=== PATIENT | female | born 1945 | race Caucasian/White ===

== ENCOUNTER → 2017-02-10 | Outpatient (CLI) | payer MEDICARE, OTHER ==
[~2017-02-10] MED LIST: ANTIVERT 25MG25 MG PO; ATIVAN1 MG PO; CALTRATE 600 +1 TAB PO; DOXYCYCLINE MO100 MG PO; ESTROGEN; PERCOCET 325 MG1 TA2 PO; PHENERGAN 25 TA25 MG PO; PHENERGAN25 MG/SUPP RC; PLAVIX 75MG TAB75 MG PO; PREMARIN 0.60.625 M1; PROAIR HFA0.09 MG/AC IH; VITAMIN B121000 MC2 PO
== END ==
LOC: COL.RAD 10:10
DX: R19.09 Other intra-abdominal and pelvic swelling, mass and lump (principal)

== ENCOUNTER → 2017-03-21 | Outpatient (CLI) | payer MEDICARE, OTHER | LOC: COL.RAD 03-14 08:30 | DX: M25.551 Pain in right hip (principal) | CPT/HCPCS: J3301; Q9967 ==

== ENCOUNTER 2018-02-23 19:24 | Emergency (ER) | payer MEDICARE, OTHER ==
[~2018-02-23] VITALS: Ht 157.5 cm; Wt 51.4 kg
[2018-02-23 19:34] VITALS: BP 168/74; TEMP 97.6
[2018-02-23 20:58] LABS: COLLECTION METHOD CLEAN CATCH
[2018-02-23 21:02] LABS: BASO % 0.5 % (0.0-2.0); EOS # 0.1 (0.0-0.7); EOS % 1.1 % (0-4.0); GRAN # 5.9 (1.4-6.5); GRAN % 72.4 % (42.2-75.2); HEMATOCRIT 42.1 % (37.0-47.0); HEMOGLOBIN 13.4 g/dl (12.5-16.0); LYMPH # 1.4 (1.2-3.4); LYMPH % 17.1 % (20.0-51.0); MEAN CELL VOLUME 96 fl (80.0-100.0); MEAN CORPUSCULAR HEMOGLOBIN 31 pg (27.0-31.0); MEAN CORPUSCULAR HGB CONC 32 g/dl (33.0-37.0); MEAN PLATELET VOLUME 9.4 fl (7.4-10.4); MONO # 0.7 (0.1-0.6); MONO % 8.8 % (1.7-9.3); PLATELET COUNT 228 K/mm3 (130-400); REDCELL DISTRIBUTION WIDTH-CV 13.6 % (11.5-14.5)
[2018-02-23 21:06] LABS: MUCOUS Present /lpf; PH 5 (5-8); SQUAMOUS EPITHELIAL 0-2 /hpf; URINE APPEARANCE Clear; URINE BACTERIA None Seen /hpf; URINE BILIRUBIN Negative (NEGATIVE); URINE BLOOD Negative (NEGATIVE); URINE COLOR Straw; URINE GLUCOSE Negative (NEGATIVE); URINE KETONE Negative (NEGATIVE); URINE LEUKOCYTE ESTERASE Trace (NEGATIVE); URINE NITRATE Negative (NEGATIVE); URINE PROTEIN(semi-quant) Negative (NEGATIVE); URINE RBC 0-2 /hpf; URINE UROBILINOGEN Negative (NEGATIVE)
[2018-02-23 21:22] LABS: ERYTHROCYTE SEDIMENTATION RATE 13 mm/hr (0-30)
[2018-02-23 21:25] LABS: ALANINE AMINOTRANSFERASE 25 U/L (9-52); ALBUMIN 3.9 gm/dL (3.5-5.0); ALKALINE PHOSPHATASE 91 U/L (50-136); ANION GAP 6 mmol/L (7-16); AST,SGOT 37 U/L (15-37); BILIRUBIN,TOTAL 0.5 mg/dL (0.0-1.0); BLOOD UREA NITROGEN 19 mg/dL (7-17); C-REACTIVE PROTEIN < 0.5 mg/dL (0.0-0.9); CALCIUM 9.8 mg/dL (8.4-10.2); CARBON DIOXIDE 33 mmol/L (22-30); CHLORIDE 99 mmol/L (98-107); CREATININE, serum 0.92 mg/dL (0.52-1.25); GLUCOSE 97 mg/dL (74-106); POTASSIUM 3.8 mmol/L (3.4-5.0); SODIUM 138 mmol/L (137-145); TOTAL PROTEIN 7.4 gm/dL (6.4-8.2)
[2018-02-23] MEDS ORDERED: VENTOLIN0.09 MG IH (21:29)
[2018-02-23] MEDS ORDERED: RT ADVAIR HFA 1112 G IH (21:29)
[2018-02-23] MEDS ORDERED: NORCO 325 MG-51 TAB PO (21:46)
[2018-02-23 22:05] VITALS: PULSE 84
== END 2018-02-23 22:06 | disposition home or self-care (01) ==
LOC: COL.ER 19:24
PROVIDERS: Physician Assistant
DX: M79.661 Pain in right lower leg (principal); J45.909 Unspecified asthma, uncomplicated; M79.1 Myalgia
CPT/HCPCS: J3010

== ENCOUNTER → 2018-04-04 | Outpatient (CLI) | payer MEDICARE, OTHER ==
[~2018-04-04] MED LIST changes: +NORCO 325 MG-51 TAB PO; +RT ADVAIR HFA 1112 G IH; +VENTOLIN0.09 MG IH
== END ==
LOC: COL.RAD 10:42
DX: M25.552 Pain in left hip (principal)
CPT/HCPCS: J3301; Q9967

== ENCOUNTER 2018-05-24 07:43 | Inpatient (IN) | payer MEDICARE, OTHER ==
[~2018-05-24] VITALS: Ht 157.5 cm; Wt 53.3 kg
[2018-05-24 08:14] LABS: BASO % 0.3 % (0.0-2.0); EOS # 0.1 (0.0-0.7); EOS % 0.4 % (0-4.0); GRAN # 12.5 (1.4-6.5); GRAN % 82.3 % (42.2-75.2); HEMATOCRIT 41.5 % (37.0-47.0); HEMOGLOBIN 13.5 g/dl (12.5-16.0); LYMPH # 1.3 (1.2-3.4); LYMPH % 8.4 % (20.0-51.0); MEAN CELL VOLUME 94 fl (80.0-100.0); MEAN CORPUSCULAR HEMOGLOBIN 31 pg (27.0-31.0); MEAN CORPUSCULAR HGB CONC 33 g/dl (33.0-37.0); MEAN PLATELET VOLUME 9.5 fl (7.4-10.4); MONO # 1.3 (0.1-0.6); MONO % 8.2 % (1.7-9.3); PLATELET COUNT 223 K/mm3 (130-400); RED BLOOD COUNT 4.41 M/mm3 (4.10-5.30)
[2018-05-24 08:22] LABS: ALANINE AMINOTRANSFERASE 29 U/L (9-52); ALKALINE PHOSPHATASE 93 U/L (50-136); ANION GAP 10 mmol/L (7-16); AST,SGOT 25 U/L (15-37); BILIRUBIN,TOTAL 0.8 mg/dL (0.0-1.0); BLOOD UREA NITROGEN 17 mg/dL (7-17); C-REACTIVE PROTEIN 1.8 mg/dL (0.0-0.9); CARBON DIOXIDE 30 mmol/L (22-30); CHLORIDE 99 mmol/L (98-107); CREATININE, serum 0.84 mg/dL (0.52-1.25); GLUCOSE 120 mg/dL (74-106); LIPASE 115 U/L (23-300); POTASSIUM 3.9 mmol/L (3.4-5.0); SODIUM 139 mmol/L (137-145); TOTAL PROTEIN 7.4 gm/dL (6.4-8.2)
[2018-05-24 08:32] LABS: TROPONIN-I < 0.012 ng/mL (0.000-0.034)
[2018-05-24 08:35] LABS: COLLECTION METHOD CLEAN CATCH
[2018-05-24 08:46] LABS: AMORPHOUS CRYSTAL Present /uL; PH 8 (5-8); SQUAMOUS EPITHELIAL 0-2 /hpf; URINE APPEARANCE Turbid; URINE BACTERIA None Seen /hpf; URINE BILIRUBIN Negative (NEGATIVE); URINE BLOOD Negative (NEGATIVE); URINE COLOR Yellow; URINE GLUCOSE Negative (NEGATIVE); URINE KETONE 1+ (NEGATIVE); URINE LEUKOCYTE ESTERASE Trace (NEGATIVE); URINE NITRATE Negative (NEGATIVE); URINE PROTEIN(semi-quant) 1+ (NEGATIVE); URINE RBC None Seen /hpf; URINE UROBILINOGEN Negative (NEGATIVE)
[2018-05-24 12:16] VITALS: BP 143/65; PULSE 69; TEMP 98.2
[2018-05-24 15:42] VITALS: BP 133/65; PULSE 89; TEMP 98.5
[2018-05-24 17:06] VITALS: BP 133/65; PULSE 89; TEMP 98.5
[2018-05-24 19:22] VITALS: BP 124/55; PULSE 72; TEMP 98.9
[2018-05-25] VITALS (7 sets, daily range): BP systolic 116–140; BP diastolic 50–61; PULSE 79–100; TEMP 97.9–98.8
[2018-05-25 06:17] LABS: HEMOGLOBIN 11.9 g/dl (12.5-16.0); MEAN CELL VOLUME 95 fl (80.0-100.0); MEAN CORPUSCULAR HEMOGLOBIN 31 pg (27.0-31.0); MEAN CORPUSCULAR HGB CONC 33 g/dl (33.0-37.0); MEAN PLATELET VOLUME 10.2 fl (7.4-10.4); PLATELET COUNT 185 K/mm3 (130-400); RED BLOOD COUNT 3.85 M/mm3 (4.10-5.30); REDCELL DISTRIBUTION WIDTH-CV 13.2 % (11.5-14.5)
[2018-05-25 06:30] LABS: HEMATOCRIT 36.6 % (37.0-47.0)
[2018-05-25 06:43] LABS: TROPONIN-I < 0.012 ng/mL (0.000-0.034)
[2018-05-25 09:59] LABS: BAND 11 % (0-10); LYMPHOCYTE 5 % (20.0-51.0); NEUTROPHILS 84 % (42.0-75.2); PLATELET ESTIMATE NORMAL (NORMAL)
[2018-05-26 04:00] VITALS: BP 126/65; PULSE 91; TEMP 98.7
[2018-05-26 06:51] LABS: BASO % 0.2 % (0.0-2.0); GRAN # 6.9 (1.4-6.5); HEMOGLOBIN 10.9 g/dl (12.5-16.0); LYMPH # 1.3 (1.2-3.4); LYMPH % 13.8 % (20.0-51.0); MEAN CELL VOLUME 96 fl (80.0-100.0); MEAN CORPUSCULAR HEMOGLOBIN 31 pg (27.0-31.0); MEAN CORPUSCULAR HGB CONC 32 g/dl (33.0-37.0); MEAN PLATELET VOLUME 10.2 fl (7.4-10.4); MONO # 0.9 (0.1-0.6); MONO % 9.7 % (1.7-9.3); PLATELET COUNT 194 K/mm3 (130-400); RED BLOOD COUNT 3.53 M/mm3 (4.10-5.30); REDCELL DISTRIBUTION WIDTH-CV 13.5 % (11.5-14.5)
[2018-05-26 06:52] LABS: HEMATOCRIT 33.9 % (37.0-47.0)
[2018-05-26 07:00] LABS: CALCIUM 8.2 mg/dL (8.4-10.2); CREATININE, serum 0.75 mg/dL (0.52-1.25); POTASSIUM 3.8 mmol/L (3.4-5.0)
[2018-05-26 07:50] VITALS: BP 137/66; PULSE 88; TEMP 97.9
[2018-05-26] MEDS ORDERED: ZITHROMAX 250M250 MG PO (10:26)
[2018-05-26] MEDS ORDERED: IPRATROPIUM BROM3 M1 IH (11:09)
[2018-05-26 12:54] VITALS: BP 142/68; PULSE 87; TEMP 98.9
[2018-05-26] MEDS ORDERED: PREDNISONE20 MG PO (13:57)
[2018-06-01 14:36] LABS: COCCIDIOIDES AB IGG Negative (Negative); COCCIDIOIDES AB IGM Negative (Negative); COCCIDIOIDES CF Negative (Negative)
== END 2018-05-26 15:23 | disposition home or self-care (01) | DRG 195 ==
LOC: COL.ER 07:43 → MEDICAL 11:19
PROVIDERS: Emergency Medicine; Internal Medicine; Physician Assistant
DX: J18.9 Pneumonia, unspecified organism (principal); J45.30 Mild persistent asthma, uncomplicated; R55 Syncope and collapse; T78.1XXA Other adverse food reactions, not elsewhere classified, initial encounter; R49.0 Dysphonia; R07.0 Pain in throat; I10 Essential (primary) hypertension; M79.7 Fibromyalgia
CPT/HCPCS: 99222-AI; 99231-AI; 99239; A4216; J0456; J0696; J1200; J1650; J2405; J2930; J7030; J7050; J7512; Q9967

== ENCOUNTER → 2018-08-18 | Outpatient (CLI) | payer MEDICARE, OTHER ==
[~2018-08-18] MED LIST changes: +IPRATROPIUM BROM3 M1 IH; +PREDNISONE20 MG PO; +ZITHROMAX 250M250 MG PO
== END ==
LOC: COL.RAD 13:28
DX: M25.552 Pain in left hip (principal)
CPT/HCPCS: J3301; Q9967

== ENCOUNTER → 2019-05-24 | Outpatient (CLI) | payer MEDICARE, OTHER | LOC: MC.RAD 08:06 | DX: Z12.31 Encounter for screening mammogram for malignant neoplasm of breast (principal) ==

== ENCOUNTER → 2021-05-15 | Outpatient (CLI) | payer MEDICARE, OTHER | LOC: MC.RAD 09:07 | DX: Z12.31 Encounter for screening mammogram for malignant neoplasm of breast (principal) ==

== ENCOUNTER 2024-03-22 19:51 | Emergency (ER) | payer MEDICARE ==
[~2024-03-22] VITALS: Ht 157.5 cm; Wt 54.1 kg
[2024-03-22 20:01] VITALS: TEMP 97.5
[2024-03-22 22:14] VITALS: BP 148/72; PULSE 93
== END 2024-03-22 22:18 | disposition home or self-care (01) ==
LOC: COL.ER 19:51
DX: S92.351A Displaced fracture of fifth metatarsal bone, right foot, initial encounter for closed fracture (principal); X50.1XXA Overexertion from prolonged static or awkward postures, initial encounter; Y93.E9 Activity, other interior property and clothing maintenance; Y92.59 Other trade areas as the place of occurrence of the external cause